=== PATIENT | female | born 1960 | race African-American/Black ===

== ENCOUNTER 2018-08-09 05:50 | Inpatient (IN) ==
[2018-08-04 12:08] LABS: Basophils # 0.1 10*3/uL (0.0-0.2); Basophils % 1.4 % (0.0-0.8); Eosinophils # 0.3 10*3/uL (0.0-0.87); Eosinophils % 7.4 % (0.00-10.9); Hematocrit 34.5 VOL% (35.7-47.0); Hemoglobin 10.9 GM/DL (12.0-16.0); Immature Granulocytes % 0.2 %; Immature Granulocytes Absolute 0.01 #; Lymphocytes # 1.6 10*3/uL (1.4-4.0); Lymphocytes % 35.9 % (21.3-54.2); Mean Corpuscular HGB Conc 31.6 GM/DL (32-36); Mean Corpuscular Hemoglobin 32 PG (27-34); Mean Corpuscular Volume 100.3 FL (87-102); Mean Platelet Volume 9.6 FL (9.6-12.0); Monocytes # 0.5 10*3/uL (0.11-0.8); Neutrophils # 1.9 10*3/uL (1.4-7.4); Neutrophils % 43.1 % (38.7-73.9); Platelet Count 286 T/CUMM (130-400); Red Blood Count 3.44 MC/CUMM (3.8-5.5); Red Cell Distribution Width 12.6 % (9.3-17.3); White Blood Count 4.4 T/CUMM (4-12)
[2018-08-04 12:26] LABS: Alanine Aminotransferase 100 U/L (13-56); Albumin 3.3 G/DL (3.4-5.0); Alkaline Phosphatase 60 U/L (45-117); Aspartate Amino Transferase 109 U/L (0-37); Bilirubin,Total < 0.39 MG/DL (0.2-1.0); Blood Urea Nitrogen 18 MG/DL (7-18); Calcium 9.5 MG/DL (8.5-10.1); Glucose 254 MG/DL (74-106); Osmolality,Calculated 287.5 MOS/KG (273-304); Potassium 4.1 MMOL/L (3.5-5.1); Sodium 139 MMOL/L (136-145); Total Protein 8.2 G/DL (6.4-8.3)
[2018-08-09] MEDS ORDERED: cefTRIAXone 1,000 MG in SYRINGE 1 EACH IV ONE (06:00)
[2018-08-09] MEDS ORDERED: cefTRIAXone 1,000 MG VIAL ONE (06:20)
[2018-08-09] MEDS ORDERED: LACTATED RINGERS 1,000 ML IV SCH (06:30)
[2018-08-09] MEDS ORDERED: GLYCOPYRROLATE 0.4 MG/2 ML VIAL ONE ×2 (06:45→10:44)
[2018-08-09] MEDS ORDERED: ROPIVACAINE 0.5% 30 ML VIAL ONE (10:11)
[2018-08-09] MEDS ORDERED: PROMETHAZINE 25 MG/1 ML VIAL IM PRN (10:34)
[2018-08-09] MEDS ORDERED: ONDANSETRON 4 MG/2 ML VIAL IV PRN ×2 (10:34→10:59)
[2018-08-09] MEDS ORDERED: MAGNESIUM HYDROXIDE SUSP 30 ML UDCUP PO PRN (10:34)
[2018-08-09] MEDS ORDERED: DEXTROSE 50% 25 GM/50 ML VIAL IV PRN (10:39)
[2018-08-09] MEDS ORDERED: GLUCAGON 1 MG VIAL IM PRN (10:39)
[2018-08-09] MEDS ORDERED: MIDAZOLAM 2 MG/2 ML VIAL ONE (10:43)
[2018-08-09] MEDS ORDERED: PROPOFOL 200 MG/20 ML VIAL IV ONE (10:43)
[2018-08-09] MEDS ORDERED: SEVOFLURANE 1 UNIT/15 MINUTE INH ONE (10:43)
[2018-08-09] MEDS ORDERED: LACTATED RINGERS 1,000 ML IV ONE (10:44)
[2018-08-09] MEDS ORDERED: ROCURONIUM 100 MG/10 ML VIAL IV ONE (10:44)
[2018-08-09] MEDS ORDERED: NEOSTIGMINE 10 MG/10 ML VIAL ONE (10:44)
[2018-08-09] MEDS ORDERED: fentaNYL 100 MCG/2 ML VIAL ONE ×2 (10:44)
[2018-08-09] MEDS ORDERED: SUCCINYLCHOLINE 200 MG/10 ML VIAL ONE (10:44)
[2018-08-09] MEDS ORDERED: PHENYLEPHRINE 1 MG/10 ML SYRINGE IV ONE (10:45)
[2018-08-09] MEDS ORDERED: PROMETHAZINE INJ 25 MG in SODIUM CHLORIDE 0.9% 50 ML IV PRN (10:59)
[2018-08-09] MEDS ORDERED: MEPERIDINE 25 MG/1 ML VIAL IV PRN (10:59)
[2018-08-09 11:07] LABS: Basophils # 0.1 10*3/uL (0.0-0.2); Basophils % 0.7 % (0.0-0.8); Eosinophils # 0.2 10*3/uL (0.0-0.87); Eosinophils % 3.1 % (0.00-10.9); Hematocrit 32.1 VOL% (35.7-47.0); Hemoglobin 9.9 GM/DL (12.0-16.0); Immature Granulocytes % 0.3 %; Immature Granulocytes Absolute 0.02 #; Lymphocytes # 1.8 10*3/uL (1.4-4.0); Lymphocytes % 26.7 % (21.3-54.2); Mean Corpuscular HGB Conc 30.8 GM/DL (32-36); Mean Corpuscular Hemoglobin 32 PG (27-34); Mean Corpuscular Volume 102.9 FL (87-102); Mean Platelet Volume 9.7 FL (9.6-12.0); Monocytes # 0.5 10*3/uL (0.11-0.8); Monocytes % 7.4 % (1.7-12.7); Neutrophils # 4.2 10*3/uL (1.4-7.4); Neutrophils % 61.8 % (38.7-73.9); Platelet Count 235 T/CUMM (130-400); Red Blood Count 3.12 MC/CUMM (3.8-5.5); Red Cell Distribution Width 12.7 % (9.3-17.3); White Blood Count 6.8 T/CUMM (4-12)
[2018-08-09 11:42] LABS: Calcium 8.9 MG/DL (8.5-10.1); Osmolality,Calculated 283.7 MOS/KG (273-304); Potassium 4.7 MMOL/L (3.5-5.1)
[2018-08-09] MEDS: INSULIN REGULAR 100 UNIT/ML SUBCUT SCH ×3 (12:19→20:08)
[2018-08-09] MEDS: SODIUM CHLORIDE 0.9% 1,000 ML IV SCH ×2 (12:19→19:52)
[2018-08-09] MEDS: ACETAMINOPHEN 325 MG TABLET PO SCH ×3 (12:20→22:43)
[2018-08-09] MEDS: HYDROmorphone 2 MG/1 ML VIAL IV PRN ×3 (12:20→20:05)
[2018-08-09] MEDS: PREGABALIN 100 MG CAPSULE PO SCH ×2 (14:22→20:08)
[2018-08-09] MEDS: IMIPRAMINE 50 MG TABLET PO SCH (20:08)
[2018-08-09] MEDS: METOPROLOL SUCCINATE XL 100 MG TABLET PO SCH (22:45)
[2018-08-10] MEDS: SODIUM CHLORIDE 0.9% 1,000 ML IV SCH ×3 (02:40→23:33)
[2018-08-10] MEDS: ACETAMINOPHEN 325 MG TABLET PO SCH ×3 (04:05→16:04)
[2018-08-10 04:25] LABS: Basophils % 0.1 % (0.0-0.8); Hematocrit 31.4 VOL% (35.7-47.0); Hemoglobin 9.5 GM/DL (12.0-16.0); Immature Granulocytes % 0.6 %; Immature Granulocytes Absolute 0.05 #; Lymphocytes # 0.9 10*3/uL (1.4-4.0); Lymphocytes % 9.8 % (21.3-54.2); Mean Corpuscular HGB Conc 30.3 GM/DL (32-36); Mean Corpuscular Hemoglobin 31 PG (27-34); Mean Corpuscular Volume 103.6 FL (87-102); Mean Platelet Volume 9.8 FL (9.6-12.0); Monocytes # 0.6 10*3/uL (0.11-0.8); Monocytes % 7.3 % (1.7-12.7); Neutrophils # 7.2 10*3/uL (1.4-7.4); Neutrophils % 82.2 % (38.7-73.9); Platelet Count 274 T/CUMM (130-400); Red Blood Count 3.03 MC/CUMM (3.8-5.5); Red Cell Distribution Width 12.7 % (9.3-17.3); White Blood Count 8.7 T/CUMM (4-12)
[2018-08-10 04:37] LABS: Calcium 8.3 MG/DL (8.5-10.1); Osmolality,Calculated 287.8 MOS/KG (273-304)
[2018-08-10] MEDS: PREGABALIN 100 MG CAPSULE PO SCH ×3 (08:49→20:34)
[2018-08-10] MEDS: METOPROLOL SUCCINATE XL 100 MG TABLET PO SCH ×2 (08:49→23:28)
[2018-08-10] MEDS: IMIPRAMINE 50 MG TABLET PO SCH ×2 (08:52→20:34)
[2018-08-10] MEDS: TAMSULOSIN 0.4 MG CAPSULE PO SCH (08:52)
[2018-08-10] MEDS: INSULIN REGULAR 100 UNIT/ML SUBCUT SCH ×4 (08:53→20:35)
[2018-08-10] MEDS: ESTRADIOL 1 MG TABLET PO SCH (08:53)
[2018-08-11] MEDS: ACETAMINOPHEN 325 MG TABLET PO SCH ×3 (00:09→12:09)
[2018-08-11 05:53] LABS: Basophils # 0.1 10*3/uL (0.0-0.2); Basophils % 0.5 % (0.0-0.8); Eosinophils # 0.3 10*3/uL (0.0-0.87); Eosinophils % 2.7 % (0.00-10.9); Hematocrit 29.2 VOL% (35.7-47.0); Hemoglobin 9.2 GM/DL (12.0-16.0); Immature Granulocytes % 0.5 %; Immature Granulocytes Absolute 0.05 #; Lymphocytes # 2.3 10*3/uL (1.4-4.0); Lymphocytes % 25.2 % (21.3-54.2); Mean Corpuscular HGB Conc 31.5 GM/DL (32-36); Mean Corpuscular Hemoglobin 32 PG (27-34); Mean Corpuscular Volume 100.7 FL (87-102); Monocytes # 0.8 10*3/uL (0.11-0.8); Monocytes % 9.1 % (1.7-12.7); Neutrophils # 5.7 10*3/uL (1.4-7.4); Platelet Count 255 T/CUMM (130-400); Red Cell Distribution Width 12.8 % (9.3-17.3); White Blood Count 9.2 T/CUMM (4-12)
[2018-08-11 06:23] LABS: Calcium 8.1 MG/DL (8.5-10.1); Osmolality,Calculated 287.4 MOS/KG (273-304); Potassium 3.9 MMOL/L (3.5-5.1)
[2018-08-11] MEDS: ESTRADIOL 1 MG TABLET PO SCH (08:27)
[2018-08-11] MEDS: TAMSULOSIN 0.4 MG CAPSULE PO SCH (08:27)
[2018-08-11] MEDS: INSULIN REGULAR 100 UNIT/ML SUBCUT SCH ×2 (08:28→12:09)
[2018-08-11] MEDS: PREGABALIN 100 MG CAPSULE PO SCH (08:28)
[2018-08-11] MEDS: METOPROLOL SUCCINATE XL 100 MG TABLET PO SCH (08:28)
[2018-08-11] MEDS ORDERED: PHENAZOPYRIDINE 95 MG TABLET PO SCH (10:00)
[2018-08-11] MEDS: IMIPRAMINE 50 MG TABLET PO SCH (10:18)
[2018-08-11] MEDS: SODIUM CHLORIDE 0.9% 1,000 ML IV SCH ×2 (12:13→14:29)
[2018-08-11 12:26] VITALS: BP 121/69
[2018-08-15 22:36] LABS: Stone Source Passed Stone
== END 2018-08-11 15:22 | disposition home or self-care (01) | DRG 660 ==
LOC: N.RAD 05:50 → N.SDSINP 05:50 → N.5E 10:34
PROVIDERS: ADMIT Surgery; ATTEND Surgery